=== PATIENT | female | born 1950 | race African-American/Black ===

== ENCOUNTER 2018-07-14 18:10 | Emergency (ER) | payer MEDICARE, OTHER ==
[~2018-07-14] VITALS: Ht 170.2 cm; Wt 116.1 kg
[2018-07-14 18:37] VITALS: BP 134/71
[2018-07-14] MEDS ORDERED: FLUORESCEIN SOD 1 MG TEST STRIP RIGHTEYE ONE (23:00)
== END 2018-07-15 00:37 | disposition home or self-care (01) ==
LOC: ER 18:10
DX: H40.051 Ocular hypertension, right eye (principal); E78.5 Hyperlipidemia, unspecified; Z88.0 Allergy status to penicillin; Z88.6 Allergy status to analgesic agent